=== PATIENT | female | born 1930 | race Caucasian/White ===

== ENCOUNTER → 2017-12-20 | Outpatient (CLI) | payer MEDICARE, MEDICAID ==
[~2017-12-20] MED LIST: ASPI81TA50 PO; FURO-92 PO; HYDR12.58 PO; HYDR25TA6 PO; LISI5TAB7 PO; LOSA25TA6 PO; LOVA40TA2 PO; NAPR220T77 PO; POTA20TA14 PO
== END | disposition home or self-care (01) ==
LOC: CVU 10:17
PROVIDERS: ATTEND Internal Medicine Cardiovascular Disease
DX: I65.23 Occlusion and stenosis of bilateral carotid arteries (principal); I10 Essential (primary) hypertension; F41.9 Anxiety disorder, unspecified
CPT/HCPCS: 93306; 93880

== ENCOUNTER 2018-01-12 10:05 | Day surgery (SDC) | payer MEDICARE, MEDICAID ==
[~2018-01-12] VITALS: Ht 152.4 cm; Wt 70.5 kg
[2018-01-12 11:15] VITALS: BP 157/76
[2018-01-12] MEDS ORDERED: MULT-717 PO (11:26)
[2018-01-12] MEDS ORDERED: POTA20TA14 PO (11:26)
[2018-01-12] MEDS ORDERED: GLUC1TAB27 PO (11:26)
[2018-01-12] MEDS ORDERED: ATOR20TA9 PO (11:26)
[2018-01-12] MEDS ORDERED: BIVALIRUDIN 250 MG ONE (11:41)
[2018-01-12] MEDS ORDERED: MIDAZOLAM 1 MG/ML, 5ML ONE (11:41)
[2018-01-12] MEDS ORDERED: HEPARIN 1,000 UNITS/ML, 10ML ONE (11:41)
[2018-01-12] MEDS ORDERED: VERAPAMIL 2.5 MG/ML, 2ML ONE (11:41)
[2018-01-12] MEDS ORDERED: TICAGRELOR 90 MG TABLET ONE (11:41)
[2018-01-12] MEDS ORDERED: FENTANYL PF 100 MCG/2ML ONE (11:41)
[2018-01-12] MEDS ORDERED: LIDOCAINE-MPF 1%, 5ML ONE (11:44)
[2018-01-12 11:56] LABS: ANION GAP 6 mmol/L (5-15); CALCIUM 9.2 mg/dL (8.5-10.1); CHLORIDE 109 mmol/L (98-107); CREATININE 0.95 mg/dL (0.55-1.02)
[2018-01-12 11:59] LABS: BASOPHILS # (AUTO) 0.03 x10^3/uL (0-0.1); BASOPHILS % (AUTO) 0 % (0-1); EOSINOPHILS # (AUTO) 0.13 x10^3/uL (0-0.4); EOSINOPHILS % (AUTO) 2 % (1-7); LYMPHOCYTES # (AUTO) 2.15 x10^3/uL (1-3.4); LYMPHOCYTES % (AUTO) 26 % (22-44); MD NO; MEAN CORPUSCULAR HEMOGLOBIN 31.1 pg (27.0-34.8); MEAN CORPUSCULAR HGB CONC 33.4 g/dL (32.4-35.8); MEAN CORPUSCULAR VOLUME 93.2 fL (80-100); MONOCYTES # (AUTO) 0.75 x10^3/uL (0.2-0.8); MONOCYTES % (AUTO) 9 % (2-9); NEUTROPHILS # (AUTO) 5.08 x10^3/uL (1.8-6.8); NEUTROPHILS % (AUTO) 62 % (42-75); PLATELET COUNT 162 x10^3/uL (130-400); RED BLOOD COUNT 4.61 x10^6/uL (3.82-5.3); RED CELL DISTRIBUTION WIDTH 13.4 % (9.6-15.2)
[2018-01-12] MEDS ORDERED: LISINOPRIL 5 MG TABLET PO ONE (14:00)
== END 2018-01-12 15:19 | disposition home or self-care (01) ==
LOC: CACL 10:05
PROVIDERS: ATTEND Internal Medicine Cardiovascular Disease
DX: I20.8 Other forms of angina pectoris (principal); I10 Essential (primary) hypertension; E78.5 Hyperlipidemia, unspecified; E11.9 Type 2 diabetes mellitus without complications; Z88.1 Allergy status to other antibiotic agents; Z79.82 Long term (current) use of aspirin; Z79.899 Other long term (current) drug therapy
CPT/HCPCS: 36415; 80048; 85025; 93458; 99156; 99157; C1760; C1769; C1894; J2250; J3010; Q9967; J0583; J1644

== ENCOUNTER 2019-06-28 09:49 | Outpatient (CLI) | payer MEDICARE, MEDICAID ==
[~2019-06-28 09:49] MED LIST changes: +ATOR20TA37 PO; +GLUC1TAB27 PO; -HYDR12.58 PO; +HYDROCHLOROTH12.5 MG PO; +LOSA25TA25 PO; -LOSA25TA6 PO; +MULT-717 PO
== END 2019-06-28 23:59 | disposition home or self-care (01) ==
LOC: CFH 09:49
PROVIDERS: ATTEND Internal Medicine Cardiovascular Disease
DX: I08.8 Other rheumatic multiple valve diseases (principal); I42.9 Cardiomyopathy, unspecified
CPT/HCPCS: 93306

== ENCOUNTER → 2019-07-22 | Outpatient (CLI) | payer MEDICARE, MEDICAID ==
[~2019-07-22] MED LIST changes: +HEPARIN 1,000 UNITS/ML, 10ML ONE
== END | disposition home or self-care (01) ==
LOC: RAD 10:48
PROVIDERS: ATTEND Internal Medicine Cardiovascular Disease
DX: I42.9 Cardiomyopathy, unspecified (principal)
CPT/HCPCS: 78472; A9560; J1644

== ENCOUNTER 2019-09-10 08:11 | Observation (INO) | payer MEDICARE, MEDICAID ==
[~2019-09-10] VITALS: Ht 152.4 cm; Wt 70.7 kg
[~2019-09-10 08:11] MED LIST changes: -HEPARIN 1,000 UNITS/ML, 10ML ONE
[2019-09-10] MEDS ORDERED: RUTI1TAB PO (08:31)
[2019-09-10 08:32] VITALS: BP 163/86
[2019-09-10 09:15] LABS: BASOPHILS # (AUTO) 0.02 x10^3/uL (0-0.1); BASOPHILS % (AUTO) 0 % (0-1); EOSINOPHILS # (AUTO) 0.13 x10^3/uL (0-0.4); EOSINOPHILS % (AUTO) 2 % (1-7); LYMPHOCYTES # (AUTO) 1.89 x10^3/uL (1-3.4); LYMPHOCYTES % (AUTO) 22 % (22-44); MD NO; MEAN CORPUSCULAR HEMOGLOBIN 30.9 pg (27.0-34.8); MEAN CORPUSCULAR HGB CONC 32.2 g/dL (32.4-35.8); MEAN CORPUSCULAR VOLUME 95.8 fL (80-100); MEAN PLATELET VOLUME 10.6 fL (7.4-10.4); MONOCYTES # (AUTO) 0.66 x10^3/uL (0.2-0.8); MONOCYTES % (AUTO) 8 % (2-9); NEUTROPHILS # (AUTO) 5.89 x10^3/uL (1.8-6.8); NEUTROPHILS % (AUTO) 69 % (42-75); PLATELET COUNT 157 x10^3/uL (130-400); RED BLOOD COUNT 4.68 x10^6/uL (3.82-5.3); RED CELL DISTRIBUTION WIDTH 13.5 % (9.6-15.2)
[2019-09-10 09:58] LABS: ANION GAP 8 mmol/L (5-15); CALCIUM 9.1 mg/dL (8.5-10.1); CHLORIDE 105 mmol/L (98-107); CREATININE 0.97 mg/dL (0.55-1.02)
[2019-09-10] MEDS ORDERED: LIDOCAINE 2%, 20ML ONE (10:53)
[2019-09-10] MEDS ORDERED: CEFAZOLIN 1,000 MG ONE (10:53)
[2019-09-10] MEDS ORDERED: FENTANYL PF 100 MCG/2ML ONE ×2 (10:53→11:06)
[2019-09-10] MEDS ORDERED: MIDAZOLAM 1 MG/ML, 5ML ONE (10:53)
[2019-09-10] MEDS ORDERED: CEFAZOLIN PMX 1GM/50ML 0 ML ONE (10:53)
[2019-09-10] MEDS ORDERED: EPHEDRINE 50 MG/ML, 1ML ONE ×2 (11:06→11:20)
[2019-09-10] MEDS ORDERED: ONDANSETRON 2MG/ML, 2ML ONE (11:06)
[2019-09-10] MEDS ORDERED: PROPOFOL 10 MG/ML, 20ML ONE (11:06)
[2019-09-10] MEDS ORDERED: SUCCINYLCHOLINE 20 MG/ML, 10ML ONE (11:06)
[2019-09-10] MEDS ORDERED: DEXAMETHASONE 4 MG/ML, 1ML ONE (11:06)
[2019-09-10] MEDS ORDERED: HOLD MEDICATION MC PRN (12:00)
[2019-09-10] MEDS ORDERED: ACETAMINOPHEN 650 MG/20.3 ML UDC ONE (12:29)
[2019-09-10] MEDS ORDERED: hydrALAzine 20 MG/ML, 1ML IV PRN (12:30)
[2019-09-10] MEDS: ACETAMINOPHEN 325 MG TABLET PO PRN ×2 (12:30→20:37)
[2019-09-10] MEDS ORDERED: ONDANSETRON 2MG/ML, 2ML IVPush PRN (12:30)
[2019-09-10] MEDS ORDERED: OXYcodone 5 MG/5 ML ORAL.SOL UDC PO PRN (12:30)
[2019-09-10] MEDS ORDERED: LABETALOL 5MG/ML, 20ML IV PRN (12:30)
[2019-09-10] MEDS ORDERED: DIAZEPAM 5 MG/ML, 2ML IVPush PRN (12:30)
[2019-09-10] MEDS ORDERED: EPHEDRINE 50 MG/ML, 1ML IVPush PRN (12:30)
[2019-09-10] MEDS ORDERED: ALBUTEROL SULFATE 2.5 MG/3 ML NPPB PRN (12:30)
[2019-09-10] MEDS ORDERED: PROMETHAZINE 12.5 MG SUPP PR PRN (12:30)
[2019-09-10] MEDS ORDERED: MEPERIDINE/PF 25MG/0.5ML IVPush PRN (12:30)
[2019-09-10] MEDS ORDERED: HYDROmorphone 1 MG/ML, 1ML INJ IVPush PRN (12:30)
[2019-09-10] MEDS ORDERED: PROMETHAZINE 25 MG/ML, 1ML IVPush PRN (12:30)
[2019-09-10] MEDS ORDERED: DIPHENHYDRAMINE 50 MG/ML, 1ML IVPush PRN (12:30)
[2019-09-10] MEDS ORDERED: MIDAZOLAM 1 MG/ML, 2ML IV PRN (12:30)
[2019-09-10] MEDS ORDERED: FENTANYL PF 100 MCG/2ML IV PRN (12:30)
[2019-09-10 13:57] VITALS: BP 138/78
[2019-09-10] MEDS: SODIUM CHLORIDE 0.9% 1,000 ML IV SCH ×2 (14:06→17:12)
[2019-09-10 20:30] VITALS: BP 145/81
[2019-09-10] MEDS: CEFAZOLIN PMX 1GM/50ML 50 ML IVPB SCH (20:38)
[2019-09-10] MEDS: SODIUM CHLORIDE FLUSH 10ML SYR IVF SCH (20:38)
[2019-09-10] MEDS ORDERED: ATORVASTATIN 20 MG TABLET PO SCH (21:00)
[2019-09-11 03:28] VITALS: BP 131/77
[2019-09-11] MEDS: CEFAZOLIN PMX 1GM/50ML 50 ML IVPB SCH (04:39)
[2019-09-11 07:55] VITALS: BP 151/82
[2019-09-11] MEDS: SODIUM CHLORIDE FLUSH 10ML SYR IVF SCH (08:34)
[2019-09-11] MEDS: ACETAMINOPHEN 325 MG TABLET PO PRN (08:34)
[2019-09-11] MEDS ORDERED: FUROSEMIDE 40 MG TABLET PO SCH (09:00)
[2019-09-11] MEDS ORDERED: MULTIVITAMINS/MINERALS TABLET PO SCH (09:00)
[2019-09-11] MEDS ORDERED: ASPIRIN 81 MG TABLET EC PO SCH (09:00)
[2019-09-11] MEDS ORDERED: POTASSIUM CHLORIDE 20 MEQ TAB.ER.PRT PO SCH (09:00)
[2019-09-11] MEDS ORDERED: [UNRECOGNIZED DRUG - OTHER] PO SCH (09:00)
[2019-09-11 10:10] VITALS: BP 138/84
== END 2019-09-11 10:15 | disposition home or self-care (01) ==
LOC: CACL 08:11 → ORIP 11:50 → 5SO 13:54 → DCLOUNGE 09-11 10:04
PROVIDERS: ADMIT Internal Medicine Cardiovascular Disease; ATTEND Internal Medicine Cardiovascular Disease
DX: I42.9 Cardiomyopathy, unspecified (principal); I11.0 Hypertensive heart disease with heart failure; I50.9 Heart failure, unspecified; Z79.899 Other long term (current) drug therapy; Z95.810 Presence of automatic (implantable) cardiac defibrillator
CPT/HCPCS: 33249; 36415; 71045; 71046; 80048; 85025; 93641; 96365; 96366; C1721; C1779; C1892; C1895; G0378; J0330; J0690; J1100; J2405; J2704; J3010; J3490; J2250

== ENCOUNTER 2019-10-28 10:53 | Observation (INO) | payer MEDICARE, MEDICAID ==
[~2019-10-28] VITALS: Ht 152.4 cm; Wt 67.3 kg
[~2019-10-28 10:53] MED LIST changes: +RUTI1TAB PO
[2019-10-28] MEDS: SODIUM CHLORIDE 0.9% 1,000 ML IV SCH ×2 (11:13→20:20)
[2019-10-28 11:21] VITALS: BP 169/74
[2019-10-28] MEDS ORDERED: CEFAZOLIN PMX 1GM/50ML 50 ML ONE (11:39)
[2019-10-28] MEDS ORDERED: LIDOCAINE 1%, 20ML ONE (11:39)
[2019-10-28] MEDS ORDERED: MIDAZOLAM 1 MG/ML, 2ML ONE (11:39)
[2019-10-28] MEDS ORDERED: FENTANYL PF 100 MCG/2ML ONE (11:39)
[2019-10-28] MEDS ORDERED: CEFAZOLIN 1,000 MG ONE (11:40)
[2019-10-28 11:54] LABS: BASOPHILS # (AUTO) 0.03 x10^3/uL (0-0.1); BASOPHILS % (AUTO) 0 % (0-1); EOSINOPHILS % (AUTO) 1 % (1-7); LYMPHOCYTES # (AUTO) 1.93 x10^3/uL (1-3.4); LYMPHOCYTES % (AUTO) 27 % (22-44); MD NO; MEAN CORPUSCULAR HGB CONC 32.5 g/dL (32.4-35.8); MEAN CORPUSCULAR VOLUME 95.3 fL (80-100); MEAN PLATELET VOLUME 10.2 fL (7.4-10.4); MONOCYTES # (AUTO) 0.62 x10^3/uL (0.2-0.8); MONOCYTES % (AUTO) 9 % (2-9); NEUTROPHILS # (AUTO) 4.44 x10^3/uL (1.8-6.8); NEUTROPHILS % (AUTO) 62 % (42-75); PLATELET COUNT 173 x10^3/uL (130-400); RED BLOOD COUNT 4.49 x10^6/uL (3.82-5.3); RED CELL DISTRIBUTION WIDTH 13.5 % (9.6-15.2)
[2019-10-28 12:02] LABS: ANION GAP 8 mmol/L (5-15); CALCIUM 9.2 mg/dL (8.5-10.1); CHLORIDE 109 mmol/L (98-107); CREATININE 0.83 mg/dL (0.55-1.02)
[2019-10-28] MEDS ORDERED: LIDOCAINE 2%, 20ML ONE (12:26)
[2019-10-28] MEDS ORDERED: HOLD MEDICATION MC PRN (13:00)
[2019-10-28] MEDS ORDERED: ACETAMINOPHEN 325 MG TABLET PO PRN (13:00)
[2019-10-28 18:49] VITALS: BP 128/76
[2019-10-28] MEDS: CEFAZOLIN PMX 1GM/50ML 50 ML IVPB SCH (20:20)
[2019-10-28] MEDS: SODIUM CHLORIDE FLUSH 10ML SYR IVF SCH (20:20)
[2019-10-28] MEDS ORDERED: ATORVASTATIN 20 MG TABLET PO SCH (21:00)
[2019-10-29 01:07] VITALS: BP 144/88
[2019-10-29] MEDS: SODIUM CHLORIDE 0.9% 1,000 ML IV SCH ×2 (02:01→11:13)
[2019-10-29] MEDS: CEFAZOLIN PMX 1GM/50ML 50 ML IVPB SCH (03:33)
[2019-10-29 06:27] VITALS: BP 154/84
[2019-10-29] MEDS: SODIUM CHLORIDE FLUSH 10ML SYR IVF SCH (08:19)
[2019-10-29] MEDS ORDERED: ASPIRIN 81 MG TABLET EC PO SCH (09:00)
[2019-10-29] MEDS ORDERED: POTASSIUM CHLORIDE 20 MEQ TAB.ER.PRT PO SCH (09:00)
[2019-10-29] MEDS ORDERED: [UNRECOGNIZED DRUG - OTHER] PO SCH (09:00)
[2019-10-29] MEDS ORDERED: MULTIVITAMINS/MINERALS TABLET PO SCH (09:00)
[2019-10-29] MEDS ORDERED: FUROSEMIDE 40 MG TABLET PO SCH (09:00)
[2019-10-29] MEDS ORDERED: ACET325T26 PO (09:28)
== END 2019-10-29 11:14 | disposition home or self-care (01) ==
LOC: CACL 10:53 → ORIP 11:13 → INTOOBSV 11:13 → 5SO 15:56 → DCLOUNGE 10-29 11:05
PROVIDERS: ADMIT Internal Medicine Cardiovascular Disease; ATTEND Internal Medicine Cardiovascular Disease
DX: I65.21 Occlusion and stenosis of right carotid artery (principal); T82.128A Displacement of other cardiac electronic device, initial encounter; I25.10 Atherosclerotic heart disease of native coronary artery without angina pectoris; I42.9 Cardiomyopathy, unspecified; E78.00 Pure hypercholesterolemia, unspecified; R06.00 Dyspnea, unspecified; I10 Essential (primary) hypertension; E78.5 Hyperlipidemia, unspecified; E11.9 Type 2 diabetes mellitus without complications; Z95.810 Presence of automatic (implantable) cardiac defibrillator; Z79.82 Long term (current) use of aspirin; Z79.899 Other long term (current) drug therapy; Z87.891 Personal history of nicotine dependence
CPT/HCPCS: 33215; 36415; 71045; 80048; 85025; 87070; 87075; 87205; 96365; 96366; 99156; 99157; G0378; J0690; J2250; J3010; J3490